=== PATIENT | male | born 1950 | race Caucasian/White ===

== ENCOUNTER 2020-07-30 09:45 | Emergency (ER) | payer OTHER ==
[2020-07-30 09:52] VITALS: BP 114/75; PULSE 85; TEMP 97.5; BMI 28.6
== END 2020-07-30 10:27 | disposition home or self-care (01) ==
LOC: JERFT 09:45
DX: L85.9 Epidermal thickening, unspecified (principal)
CPT/HCPCS: 99281-25

== ENCOUNTER 2023-11-02 04:30 | Day surgery (SDC) | payer OTHER ==
[2023-10-23 10:54] VITALS: BMI 29.6
[2023-11-02 10:53] VITALS: TEMP 97.6
[2023-11-02 11:06] VITALS: RESP 18
[2023-11-02 11:33] VITALS: BP 117/72; PULSE 57
== END 2023-11-02 11:30 | disposition home or self-care (01) ==
LOC: JASU-ENDO 04:30
PROVIDERS: ATTEND Internal Medicine Gastroenterology
PROC: 0DBM8ZX Excision of Descending Colon, Via Natural or Artificial Opening Endoscopic, Diagnostic (ICD-10-PCS; 2023-11-02)
PROC: 0DBL8ZX Excision of Transverse Colon, Via Natural or Artificial Opening Endoscopic, Diagnostic (ICD-10-PCS; 2023-11-02)
PROC: 3E0H8KZ Introduction of Other Diagnostic Substance into Lower GI, Via Natural or Artificial Opening Endoscopic (ICD-10-PCS; 2023-11-02)
PROC: 0DB98ZX Excision of Duodenum, Via Natural or Artificial Opening Endoscopic, Diagnostic (ICD-10-PCS; 2023-11-02)
PROC: 0DB78ZX Excision of Stomach, Pylorus, Via Natural or Artificial Opening Endoscopic, Diagnostic (ICD-10-PCS; 2023-11-02)
PROC: 0DBH8ZX Excision of Cecum, Via Natural or Artificial Opening Endoscopic, Diagnostic (ICD-10-PCS; principal; 2023-11-02 10:00)
DX: Z12.11 Encounter for screening for malignant neoplasm of colon (principal); K63.5 Polyp of colon; K64.8 Other hemorrhoids; K29.50 Unspecified chronic gastritis without bleeding; Z87.19 Personal history of other diseases of the digestive system
CPT/HCPCS: 88305-TC; 88342-TC